=== PATIENT | male | born 1985 | race Two or more races ===

== ENCOUNTER 2024-12-15 17:11 | Emergency (ER) | payer SELFPAY ==
[2024-12-15 17:24] VITALS: BP 144/92; PULSE 92; RESP 18; TEMP 37.6; O2SAT 99; BMI 28.4
--- NOTE | 2024-12-15 17:29 | ED.URI ---
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 He denies any other symptoms but did note a fever as well as worsening sore throat. It makes it hard to eat or drink. He is taking Tylenol with last dose at 16:00 that is not relieving his pain. He has not seen a doctor he has no other symptoms at this time, he is able to move his neck without issue, he is able to swallow his saliva. MD elicited complaint: sore throat Onset (ago): day(s) (Five) Consistency: constant Severity: severe Description of mucous: clear Able to tolerate fluids by mouth: Yes Exacerbating factors: swallowing Relieving factors: nothing Context: sick contacts Associated symptoms: fever, chills and sore throat Treatments prior to arrival: acetaminophen Related Data Previous Rx's ?Medication ?Instructions ?Recorded amoxicillin 500 mg tablet 500 mg PO BID #20 tabs 12/15/24 Allergies Allergy/AdvReac Type Severity Reaction Status Date / Time No Known Allergies Allergy Verified 12/15/24 17:29 Review of Systems Review of Systems: Constitutional : positive Fever, positive Chills ENT/Mouth : positive sore throat, no runny nose Eyes: No Discharge Cardiovascular : No Chest Pain, No SOB Respiratory : No Cough, No Sputum Gastrointestinal : No Nausea, No Vomiting, No Diarrhea Genitourinary : No Dysuria, No Urinary Frequency Musculoskeletal :no Myalgia Skin : No rash Neuro : No Headache Yes all other systems are reviewed and are negative PMFSH Past Medical History Attestation statement: The following information was validated with the patient. Source: old records reviewed Medical History Hypertension Social History Social History (Updated 12/15/24 @ 18:31 by Kely Simmons DO) Patient Tobacco Use Status: Never used Tobacco Advance Directives: No Advance Directives Information Provided: No Physical Exam Vital Signs: Vital Signs: Last Vital Signs Temp 99.6 F 12/15/24 18:46 Pulse 92 12/15/24 18:46 Resp 18 12/15/24 18:46 BP 144/92 H 12/15/24 18:46 Pulse Ox 99 12/15/24 18:46 O2 Del Method Room Air 12/15/24 18:46 BMI result Body Mass Index 28.4 Appearance: Alert. Oriented X3. No acute distress. Eyes: Pupils equal, round and reactive to light. ENT: Pharynx moderate erythema with exudates on both tonsils the right has more. Right tonsil is slightly more swollen, but uvula is midline, he is tolerating secretions, he has normal range of motion of the neck, he has no signs of peritonsillar abscess or retropharyngeal abscess Neck: Normal inspection. Neck supple. Normal range of motion CVS: Pulses normal. Respiratory: No respiratory distress. Abdomen: Soft and nontender. Skin: Skin warm and dry. Normal skin color. Extremities: No lower extremity edema. Neuro: Oriented X 3. No motor deficit. No sensory deficit. CN2-12 intact Course Course Course Narrative: This is an RME: Additional HPI, ROS, PE not included below will be deferred to primary provider. RME assessment and note performed by: Geraldine Urbina PA-C This is a 70-wkwn-eip-Slovenian speaking male, with a hx of HTN, who presents to the ER with complaint of fevers, malaise, ST x 5 days. Pt with r tonsillar erythema and exudates noted. No trismus, drooling or dysphonia Plan: COVID,Flu, RSV, strep swab Medications Administered Discontinued Medications Generic Name Dose Route Start Last Admin Trade Name Neda PRN Reason Stop Dose Admin Amoxicillin 500 mg 12/15/24 18:27 12/15/24 18:34 Amoxicillin 500 Mg Capsule PO 12/15/24 18:28 500 mg ONCE ONE Administration Dexamethasone Sodium Phosphate 8 mg 12/15/24 18:27 12/15/24 18:34 Dexamethasone Sod Phosphate 4 Mg/Ml Vial PO 12/15/24 18:28 8 mg ONCE ONE Administration Ibuprofen 600 mg 12/15/24 18:27 12/15/24 18:34 Ibuprofen Oral Susp 200 Mg/10 Ml Oral.Susp PO 12/15/24 18:28 600 mg ONCE ONE Administration Medical Decision Making Medical Decision Making MDM Narrative: 39-year-old male with past medical history of hypertension who presents with 5 days of sore throat feeling he has a fever is having difficulty eating and drinking due to the pain did take Tylenol 16:00 today. He notes he has sick contacts at home. On exam he has no signs of peritonsillar abscess or retropharyngeal abscess his uvula is midline and he has normal range of motion of the neck, he is tolerating secretions, he is not toxic-appearing we will start on p.o. steroids, ibuprofen and amoxicillin Differential Diagnosis Differential Diagnoses: The differential diagnosis associated with the presentation includes Viral syndrome, strep throat Admission/Observation Consideration of admission/observation: Escalation of care including admission/observation considered Not toxic he will be managed with oral antibiotics and supportive care Lab Data [facility] Lab Attestation statement: I reviewed the patient's lab results. Labs: Lab Results 12/15/24 Range/Units 17:47 Influenza Type A (PCR) NEGATIVE (Negative) Influenza Type B (PCR) NEGATIVE (Negative) RSV RNA Qual (PCR) NEGATIVE (Negative) SARS-CoV-2 RNA (RT-PCR) NEGATIVE (Negative) S. pyogenes GrpA SALUD Positive A (Negative) External Record Review External record reviewed: Outpatient record Prescription Management I considered prescription management with: Antibiotic Discharge Plan Discharge Clinical Impression: Strep throat Patient Disposition: Home, Self-Care Instructions: Strep Throat (ED) Additional Instructions: Neuro positive for strep throat At this time we need to finish and take all antibiotics as prescribed Throw a toothbrush after 24 hours Return for any worsening symptoms, swelling, inability to swallow her saliva, worsening pain or swelling in the neck, or any other concerns You are not infective after 12 hours from your 1st dose of antibiotics On amoxicillin-clavulanate, softer bowel movements are to be expected. Call your provider if you move your bowels more than 4 times a day, your bowel movements are almost all liquid, or you get a rash.? Your COVID and flu are pending if they are positive I will call you at home Prescriptions: New amoxicillin 500 mg tablet 500 mg PO BID Qty: 20 0RF Stand Alone Forms: Work/School Release Interventions: ED Discharge Assessment Last Done: 12/15/24 18:46 Discharge Date/Time: 12/15/24 18:46 Print Language: Kinyarwanda
[2024-12-15 18:00] LABS: IDNOW Serial# 55D5AD1C
[2024-12-15 18:01] LABS: Strep A Nucleic Acid Positive (Negative)
[2024-12-15] MEDS: Ibuprofen Oral Susp 200 MG/10 ML ORAL.SUSP 600 MG PO (18:34)
[2024-12-15 18:35] LABS: Resp Syncy Virus RNA Qual PCR NEGATIVE (Negative); SARS COV2 PCR INHOUSE NEGATIVE (Negative)
[2024-12-15 18:46] VITALS: BP 144/92; PULSE 92; RESP 18; TEMP 37.6; O2SAT 99
== END 2024-12-15 18:46 | disposition home or self-care (01) ==
PROVIDERS: Physician Assistant Medical; Emergency Provider Emergency Medicine
DX: J02.0 Streptococcal pharyngitis (principal); Z03.818 Encounter for observation for suspected exposure to other biological agents ruled out
CPT/HCPCS: 87637; 87651; 99283; J1100

== ENCOUNTER 2024-12-19 21:21 | Emergency (ER) | payer SELFPAY ==
[2024-12-19 21:24] VITALS: BP 134/74; PULSE 84; RESP 18; TEMP 37.3; O2SAT 96; BMI 27.8
--- NOTE | 2024-12-19 21:53 | ED.GENADULT ---
HPI - General Adult General Chief complaint: General Medical Stated complaint: General Medical Time Seen by Provider: 12/19/24 21:53 Source: patient, RN notes reviewed and old records reviewed Mode of arrival: ambulatory Limitations: no limitations History of Present Illness ED Provider: Bill RUBY narrative: 39-year-old male presents for evaluation of sore throat. He was diagnosed with strep pharyngitis 4-1/2 days ago on 12/15/2024 pain He is currently taking amoxicillin 500 mg b.i.d. and reports being compliant He reports his pain has been worsening. He is able to swallow but has significant pain with swallowing Related Data Previous Rx's ?Medication ?Instructions ?Recorded amoxicillin 500 mg tablet 500 mg PO BID #20 tabs 12/15/24 amoxicillin 875 mg-potassium 1 tab PO Q12H #14 tabs 12/20/24 clavulanate 125 mg tablet Allergies Allergy/AdvReac Type Severity Reaction Status Date / Time No Known Allergies Allergy Verified 12/19/24 21:34 Review of Systems Constitutional: Constitutional: Denies body ache(s), Denies chills and Denies fever(s) Eyes: Eyes: Denies blurry vision ENT: Reports sore throat, Denies throat swelling and Denies tongue swelling Cardiovascular: Cardiovascular: Denies chest pain and Denies dyspnea on exertion Respiratory: Respiratory: Denies cough and Denies dyspnea on exertion Gastrointestinal: Gastrointestinal: Denies abdominal pain, Denies nausea and Denies vomiting Musculoskeletal: Musculoskeletal: Denies back pain Integumentary/Breasts: Skin/Breast: Denies rash Hematologic/Lymphatic: Hematologic/Lymphatic: Reports lymphadenopathy Allergic/Immunologic: Allergic/Immunologic: Denies throat swelling and Denies tongue swelling [facility] Past Medical History Medical History Hypertension Social History Social History (Updated 12/15/24 @ 18:31 by Kely Simmons DO) Patient Tobacco Use Status: Never used Tobacco Smoked in Last 30 Days: No Use of substances other than those prescribed or required for medical reasons: No Advance Directives: No Advance Directives Information Provided: Yes Physical Exam ED Vital Signs: Vital Signs - 24 hr 12/19/24 21:24 12/19/24 22:35 Temperature 99.2 F 98.3 F Pulse Rate 84 73 Respiratory Rate 18 16 Blood Pressure 134/74 129/77 Pulse Oximetry 96 98 Oxygen Delivery Method Room Air Room Air BMI result Body Mass Index 27.8 Const General: healthy appearing, comfortable, no acute distress, alert and awake Nutritional Appearance: well nourished Orientation/consciousness: patient oriented x3 HENMT Other: The patient has some fullness to the soft palate on the right side. There is uvula deviation to the left. Right-sided peritonsillar hypertrophy with exudates Head: Yes normocephalic and Yes atraumatic Throat: No posterior oropharynx normal and No uvula midline Eyes Eyelids: Yes eyelids normal Conjunctivae: conjunctivae normal Sclerae: sclerae normal Corneas: corneas normal Pupils: Equal, round and reactive pupils present EOM: EOMs intact bilaterally Neck Neck: Yes full ROM Resp Effort & Inspection: normal respiratory effort, able to speak in complete sentences and not labored Cardio Rate: regular rate Rhythm: regular rhythm GI Inspection: No distended Palpation (GI): Soft to palpation, not firm, nontender, no guarding and not rigid Skin General skin exam: elasticity normal Neuro General: patient oriented x3 Cranial nerves: Yes Equal, round and reactive pupils present and Yes Bilaterally intact EOM present Cognition (Neuro): normal cognition Extrem Other: Moving all extremities well without any obvious deformities Course Reevaluation(s) Reevaluation #1: Patient had significant improvement in his discomfort after successful peritonsillar abscess drainage by my attending. He received IV dexamethasone, Toradol and Unasyn. He is stable for discharge Time: 01:24 Medications Administered Discontinued Medications Generic Name Dose Route Start Last Admin Trade Name Jedq PRN Reason Stop Dose Admin Dexamethasone Sodium Phosphate 4 mg 12/20/24 00:13 12/20/24 00:20 Dexamethasone Sod Phosphate 4 Mg/Ml Vial IVPUSH 12/20/24 00:14 4 mg ONCE ONE Administration Ampicillin Sodium/Sulbactam 100 mls @ 200 mls/hr 12/20/24 00:15 12/20/24 00:55 Sodium 3 gm/ Sodium Chloride IV 12/20/24 00:44 Infused ONCE ONE Infusion Ketorolac Tromethamine 30 mg 12/20/24 00:13 12/20/24 00:20 Ketorolac Tromethamine 30 Mg/Ml Vial IVPUSH 12/20/24 00:14 30 mg ONCE ONE Administration Lidocaine HCl 1 appl 12/20/24 00:02 12/20/24 00:21 Lidocaine Hcl 4 % [id number] 4 Ml TOPICAL 12/20/24 00:03 1 appl ONCE ONE Administration Lidocaine HCl 15 ml 12/20/24 00:02 12/20/24 00:11 Lidocaine Hcl Viscous 2 % 15 Ml Solution MUCOUS MEM 12/20/24 00:03 15 ml ONCE ONE Administration Lidocaine/Epinephrine 10 ml 12/20/24 00:12 12/20/24 00:21 Lidocaine Hcl 1%/Epi 1:100,000 10 Ml Vial INFILTRATI 12/20/24 00:13 10 ml ONCE ONE Administration Procedures Abscess I/D Site: other (Right peritonsillar) Side (if applicable): right Local Anesthetic: lidocaine 1% and with epi Amount of anesthesia used (mL): 3 Technique: needle aspiration Amount of fluid expressed (mL): 1 Sent for culture/gram staining?: No Irrigation: No Packing used?: none Complications: other Medical Decision Making Medical Decision Making [facility] Narrative: There has a healthy 39-year-old male presenting for evaluation of increasing sore throat since being diagnosed with strep pharyngitis 5 days when 12/15/2024. He has completed 5 days' worth of antibiotics. He reports he is able to swallow but has significant pain with swallowing only in the right side of his mouth. On exam he appears to have left-sided uvula deviation with some fullness to the right soft palate. He does not have any significant trismus but I have a high suspicion for peritonsillar abscess. I discussed possible CT imaging with the patient but recommended needle aspiration. The patient is agreeable to needle aspiration. I did order a dose of Toradol, dexamethasone and an IV dose of Unasyn. See procedure note. I did not get any significant purulent aspiration and requested help for my attending, Dr Verma Differential Diagnosis Differential Diagnoses: The differential diagnosis associated with the presentation includes Peritonsillar abscess Pharyngitis Strep pharyngitis Mononucleosis Peritonsillar cellulitis Admission/Observation Consideration of admission/observation: Escalation of care including admission/observation considered Lab Data [facility] Lab Attestation statement: I reviewed the patient's lab results. Leukocytosis to 15.3 1000. No significant anemia. No significant chemistry abnormalities warranting intervention 12/19/24 21:51 12/19/24 21:51 Labs: Lab Results 12/19/24 Range/Units 21:51 WBC 15.3 H (4.8-10.8) X10*3/uL RBC 5.24 (4.60-5.80) X10*6/uL Hgb 14.9 (14.0-18.0) g/dl Hct 42.1 (42.0-52.0) % MCV 80.3 (80.0-98.0) fL MCH 28.4 (27.0-33.0) pg MCHC 35.4 (31.0-36.0) g/dl RDW 12.2 (11.0-16.0) % Plt Count 402 H (160-400) X10*3/uL MPV 10.1 (9.4-12.4) fL Immature Gran % (Auto) 0.7 H (0.0-0.4) % Neut % (Auto) 77.4 H (45-73) % Lymph % (Auto) 14.3 L (20-40) % [place] % (Auto) 6.8 (2-11) % Eos % (Auto) 0.3 (0-4) % Baso % (Auto) 0.5 (0-2) % Lymph # (Auto) 2.2 (1.2-4.9) X10*3/uL [place] # (Auto) 1.0 (0.1-1.2) X10*3/uL Eos # (Auto) 0.0 (0.0-0.4) X10*3/uL Baso # (Auto) 0.1 (0.0-0.2) X10*3/uL Abs Immat Gran (auto) 0.11 H (0.00-0.03) X10*3/uL Absolute Neuts (auto) 11.8 H (2.0-8.3) x10*3/uL Absolute Nucleated RBC 0.000 (0.0-0.012) X10*3/uL Nucleated RBC % (auto) 0.0 (0.0-0.2) /100WBC Sodium 136 (135-145) mmol/L Potassium 4.3 (3.3-5.1) mmol/L Chloride 102 (96-108) mmol/L Carbon Dioxide 23 (22-29) mmol/L Anion Gap 15 (12-20) BUN 14 (9-16) mg/dL Creatinine 0.93 (0.5-1.4) mg/dL Estim Creat Clear Calc 129.5 Estimated GFR > 60 Random Glucose 125 H (60-115) mg/dL Lactic Acid 0.8 (0.5-2.0) mmol/L Calcium 10.1 (8.4-10.2) mg/dL Tests considered The following testing was considered but not selected: Consider CT scan soft tissue neck to evaluate for peritonsillar abscess but this was deferred as the diagnosis was made clinically was successful peritonsillar abscess drainage Prescription Management I considered prescription management with: Pain Medication and Antibiotic Chronic Conditions Patient?s care impacted by: Hypertension Discharge Plan Discharge Clinical Impression: Peritonsillar abscess Patient Disposition: Home, Self-Care Instructions: Peritonsillar Abscess (ED) Additional Instructions: You should discontinue the amoxicillin and start taking Augmentin twice daily for an additional week. Follow up with your primary doctor, return for new or worsening symptoms Prescriptions: New amoxicillin-pot clavulanate 875-125 mg tablet 1 tab PO Q12H Qty: 14 0RF No Action amoxicillin 500 mg tablet 500 mg PO BID Qty: 20 0RF Referrals: Francis Neal [Physician, Ear, Nose, Throat] Referral Note: peritonsillar abscess Stand Alone Forms: Work/School Release Interventions: ED Discharge Assessment Last Done: 12/20/24 01:19 Print Language: Kiswahili
[2024-12-19 21:58] LABS: Hematocrit 42.1 % (42.0-52.0); Hemoglobin 14.9 g/dl (14.0-18.0); Imm Gran Abs Auto 0.11 X10*3/uL (0.00-0.03); Imm Gran Pct Auto 0.7 % (0.0-0.4); Lymphocytes Absolute Auto 2.2 X10*3/uL (1.2-4.9); MANUAL DIFF FLAG NO; Mean Corpuscular HGB Conc 35.4 g/dl (31.0-36.0); Mean Corpuscular Hemoglobin 28.4 pg (27.0-33.0); Mean Corpuscular Volume 80.3 fL (80.0-98.0); NRBC Abs Auto 0.000 X10*3/uL (0.0-0.012); NRBC Pct Auto 0.0 /100WBC (0.0-0.2); Platelet Count 402 X10*3/uL (160-400); Red Blood Count 5.24 X10*6/uL (4.60-5.80); White Blood Count 15.3 X10*3/uL (4.8-10.8)
[2024-12-19 22:11] LABS: Anion Gap 15 (12-20); Blood Urea Nitrogen 14 mg/dL (9-16); Calcium 10.1 mg/dL (8.4-10.2); Carbon Dioxide 23 mmol/L (22-29); Chloride 102 mmol/L (96-108); Creatinine Clr Calc Pharmacy 129.5; Estimated Glomerular Filt Rate > 60; Potassium 4.3 mmol/L (3.3-5.1); Sodium 136 mmol/L (135-145)
[2024-12-19 22:35] VITALS: BP 129/77; PULSE 73; RESP 16; TEMP 36.8; O2SAT 98
[2024-12-20] MEDS: Lidocaine HCl Viscous 2 % 15 ML SOLUTION MUCOUS MEM (00:11)
[2024-12-20] MEDS: Lidocaine HCl 1%/Epi 1:100,000 10 ML VIAL INFILTRATI (00:21)
[2024-12-20] MEDS: Lidocaine HCl 4 % Laryng-O-Jet 4 ML 1 APPL TOPICAL (00:21)
[2024-12-20 01:19] VITALS: BP 125/70; PULSE 83; RESP 16; TEMP 37.2; O2SAT 97
== END 2024-12-20 01:30 | disposition home or self-care (01) ==
PROVIDERS: Physician Assistant Medical; Emergency Provider Emergency Medicine
DX: J36 Peritonsillar abscess (principal)
CPT/HCPCS: 36415; 42700; 80048; 83605; 85025; 87040; 96365; 96375; 99284; J0295; J1100; J1885; J2004